=== PATIENT | female | born 1980 | race Caucasian/White ===

== ENCOUNTER 2020-08-02 12:20 | Emergency (ER) | payer OTHER ==
[2020-08-02 12:43] VITALS: BP 119/58; PULSE 65; TEMP 98.2; BMI 37.7
[2020-08-02] MEDS ORDERED: IBUPROFEN 400 MG TABLET (FP) PO ONE (13:05)
--- NOTE | 2020-08-02 13:23 | PDOC ---
History of Present Illness - General Chief Complaint: Pain Stated Complaint: PAIN Time Seen by Provider: 08/02/20 12:49 History Source: Patient Exam Limitations: No Limitations - History of Present Illness Initial Comments: 08/02/20 13:17 40 year old female no pmhx with 4 days of urinary frequency burning and R flank pain. Pt states that she has not noticed any blood in her urine or experienced any fever chills nausea or vomiting. Pt otherwise denies: fevers, chills, syncope, lightheadedness, dizziness, headaches, neck pain, chest pain, shortness of breath, palpitations, back pain, abdominal pain, nausea, vomiting, diarrhea, constipation. Past History - Medical History Allergies/Adverse Reactions: Allergies Allergy/AdvReac Type Severity Reaction Status Date / Time No Known Allergies Allergy Verified 08/02/20 12:40 Home Medications: Ambulatory Orders Ibuprofen [Ibu] 600 mg PO TID 10 Days #30 tablet 08/02/20 - Reproductive History Is Patient Now?: No - Psycho-Social/Smoking History Smoking History: Never smoked Have you smoked in the past 12 months: No - Substance Abuse Hx (Audit-C & DAST Scrn) How often the patient has a drink containing alcohol: Never Score: In Men: 4 or > Positive; In Women: 3 or > Positive: 0 Screen Result (Pos requires Nsg. Audit-10AR): Negative *Physical Exam - Vital Signs Last Vital Signs Temp Pulse Resp BP Pulse Ox 98.2 F 65 18 119/58 L 97 08/02/20 12:40 08/02/20 12:40 08/02/20 12:40 08/02/20 12:40 08/02/20 12:40 - Physical Exam 08/02/20 13:20 Gen: AAOx 3, no acute distress, comfortable, no signs of respiratory distress HENT: atraumatic, normocephalic with no laceration or contusion. Nasal mucosa wi thout erythema. Oropharynx without erythema or exudates. Mucous membranes moist. EYES: PERRL, EOM intact, conjunctiva pink NECK: supple; trachea midline; no JVD, no lymphadenopathy, or thyromegaly CV: RRR no murmurs, gallops, or rubs. CHEST: CTA b/l no wheezing, rales or rhonchi ABD: +BS/ND. no TTP; soft, no rebound, no guarding mild R CVAT EXTREMITY: no cyanosis or erythema. 2+ dorsalis pedis, posterior tibial, and radial pulse. No pedal edema; no calf swelling or tenderness SKIN: no rash, warm and dry, no diaphoresis HEME: no purpura or ecchymosis NEURO: normal speech, CN II-XII intact, sensation intact, normal gait, no cerebellar deficits MS: 5/5 strength in all extremities, FROM intact in all extremities. ED Treatment Course - LABORATORY CBC & Chemistry Diagram: 08/02/20 13:00 08/02/20 13:00 - Medications Given in the ED: ED Medications Discontinued Medications Generic Name Dose Route Start Last Admin Trade Name Freq PRN Reason Stop Dose Admin Ibuprofen 800 mg 08/02/20 13:05 08/02/20 13:14 Motrin - PO 08/02/20 13:06 800 mg ONCE ONE Administration Medical Decision Making - Medical Decision Making 08/02/20 13:21 40-year-old female with urinary symptoms of right flank pain Vital signs stable Obtain CBC CMP UA UC and administer ibuprofen for symptomatic relief Will reassess based on results White blood cell count 9.6 H&H stable at 14.0/41 Chemistry within normal limits UA significant for blood but no UTI Will obtain CT abdomen and pelvis without contrast to assess for nephroliathsis CT Shows: Right renal cyst measuring 4 x 3.5 cm Punctate nonobstructing right mid renal stone without evidence of hydronephrosis or ureteral stone bilaterally Small fat-containing umbilical hernia Tiny diverticula in the colon without evidence of acute diverticulitis No free air or free fluid in the abdomen pelvis Patient to follow-up with urology as well as PCP No acute intervention warranted in the ED patient discharged with ibuprofen Pt appears well and is safe and stable for discharge with strict return precautions including signs and symptoms requring immediate return to the ED Supportive care instructions explained and given to pt. Reasons to return emergently to ER explained and given. Importance of follow up with PMD and other specialists as indicated stressed to pt. Pt verbalized understanding of instructions. Pt to follow up with PMD in 2 days. Discharge - Discharge Information Problems reviewed: Yes Clinical Impression/Diagnosis: Kidney stone on right side Condition: Stable Disposition: HOME - Additional Discharge Information Prescriptions: Ibuprofen [Ibu] 600 mg PO TID 10 Days #30 tablet - Follow up/Referral Referrals: Rhys Lopez MD [Staff Physician] - Venita Peña MD [Primary Care Provider] - Kiara Villalpando MD [Staff Physician] - - Patient Discharge Instructions Patient Printed Discharge Instructions: DI for Kidney Stones - Post Discharge Activity
[2020-08-02 13:39] LABS: BASO % 0.8 % (0-2.0); EOS % 1.1 % (0-4.5); LYMPH % 23.3 % (8-40); MCHC 34.1 g/dl (32.0-36.0); MEAN PLT VOLUME 8.6 fl (7.5-11.1); MONO % 8.5 % (3.8-10.2); NEUT % 66.3 % (42.8-82.8); PLATELET COUNT 323 K/MM3 (134-434); RBC 4.36 M/mm3 (3.60-5.2); RDW 12.8 % (11.6-15.6); WHITE BLOOD COUNT 9.6 K/mm3 (4.0-10.0)
[2020-08-02 13:42] LABS: EPI CELLS 7 /uL (0-25.1); HYALINE CASTS 1 /uL (0-3.1); PH,URINE 5.5 (5.0-8.0); URINE APPEARANCE CLEAR; URINE BACTERIA 368 /uL (0-1359); URINE BILIRUBIN NEGATIVE (NEGATIVE); URINE COLOR YELLOW; URINE GLUCOSE (UA) NEGATIVE (NEGATIVE); URINE KETONE NEGATIVE (NEGATIVE); URINE LEUK ESTERASE NEGATIVE (NEGATIVE); URINE NITRITE NEGATIVE (NEGATIVE); URINE PROTEIN NEGATIVE (NEGATIVE); URINE RBC 11 /uL (0-23.9); URINE UROBILINOGEN 0.2 mg/dL (0.2-1.0); URINE WBC 3 /uL (0-25.8)
[2020-08-02 14:05] LABS: ALBUMIN 3.7 g/dl (3.4-5.0); BILIRUBIN,TOTAL 0.5 mg/dL (0.2-1); BLOOD UREA NITROGEN 9.3 mg/dL (7-18); CALCIUM 8.8 mg/dL (8.5-10.1); CREATININE 0.8 mg/dL (0.55-1.3); POTASSIUM 4.1 mmol/L (3.5-5.1); TOT PROT 7.6 g/dl (6.4-8.2)
[2020-08-02 14:12] LABS: HCG,QUALITATIVE URINE Negative
== END 2020-08-02 16:08 | disposition home or self-care (01) ==
LOC: JERFT 12:20 → JER 12:20 → JERFT 16:08
DX: N20.0 Calculus of kidney (principal)
CPT/HCPCS: 36415; 74176-TC; 80053; 81003; 84703; 85025; 87086; 99284-25